=== PATIENT | male | born 1935 | race African-American/Black ===

== ENCOUNTER 2021-08-31 16:34 | Inpatient (IN) | payer OTHER ==
[~2021-08-31] VITALS: Ht 185.4 cm; Wt 73.9 kg
[2021-09-01 05:00] VITALS: BP 154/95
--- NOTE | 2021-09-01 07:15 | NUR ---
09-01-21 [facility] PT ARRIVED ON UNIT 0500 PT PLESANTLY CONFUSED BUT COOPERATIVE. PT AAOX1, B/P 154/65, P 65, R 18, T 97.0, 02 SAT 97% RA, RR EVEN AND NONLABORED ON RA. HCP Ten RDZ BILINGUAL SECRETARY CONTACTED. HCP Lauro PALACIOS NP CONTACTED AND ORDERS RECEIVED. PT HX HTN, HLD, GERD, MAJOR NEUROCOGNITIVE D/O WITH BEHAVIORS. RECEIVED CONSENTS FROM EVETTE RIVAS. PT WILL CONTINUE TO BE MONITOR PER [facility].
[2021-09-01 08:29] VITALS: BP 169/108
[2021-09-01 11:31] LABS: HEMATOCRIT 31.8 % (42.0-52.0); HEMOGLOBIN 10.5 gm/dL (14.0-18.0); MCH 32.1 pg (26.0-34.0); MCV 97.4 fL (80.0-100.0); RBC 3.27 mil/uL (4.50-6.00); RDW 14.9 % (10.5-14.5); WBC 3.7 thou/uL (4.0-11.0)
[2021-09-01 12:02] LABS: ANION GAP 9 mmol/L (7-16); BUN 19 mg/dL (7-18); CALCIUM 8.8 mg/dL (8.5-10.1); CHLORIDE 107 mmol/L (98-107); CHOLESTEROL 161 mg/dL (<200); CO2 26 mmol/L (21-32); CREATININE 1.1 mg/dL (0.7-1.3); GLUCOSE 124 mg/dL (74-106); HDL CHOLESTEROL 61 mg/dL (>40); LDL CHOLESTEROL 81 mg/dL (<100); MAGNESIUM 1.9 mg/dL (1.8-2.4); POTASSIUM 3.9 mmol/L (3.5-5.1); SODIUM 142 mmol/L (136-145); TC:HDL 2.6 Ratio (Not establshd); TRIGLYCERIDE 98 mg/dL (<150); VLDL 20 mg/dL (<40)
[2021-09-01 13:04] LABS: FOLIC ACID 22.5 ng/mL (8.6-58.9)
--- NOTE | 2021-09-01 17:33 | NUR ---
ERICKSON and Dr. Nelson were able to meet with the Pt's son/DPOA, Rodger, by phone. The Pt's was also on the phone call. Medications were discussed. Rodger was in agreement to medication recommendations from Dr. Nelson. Rodger stated they would like to place the Pt. The Pt has VA benefits and the family is completing the paperwork to acess the [facility] for LTC. Rodger stated the process could take 6-8 weeks. However the family has some money to private pay for placement. Rodger stated they have spoke with [facility] concerning placement. Rodger stated [facility] has accepted the Pt at this time. ERICKSON explained facilities sometimes agree prior to recieving clinical information, but change their minds once they get information. ERICKSON will reach out to [facility] Robison concerning the matter. There were no other questions or concerns. ERICKSON will continue to follow.
--- NOTE | 2021-09-01 18:05 | NUR ---
Patient care resummed, patient was located in the day room in a chair watchinf T.V. Patient has been pacing the halls throughout the day, anxious, and disoriented. Patient has been exit seeking and has been found in patient rooms throughout the day. Patient is confused, and noncompliant with clothing changes, and assessments. Patient has eaten all meals in the dayroom although when taking morning medications the patient chewed up his medications instead of swallowing them whole. MANAGEMENT ENGINEER crushed other medications throughout the day as indicated. A&O*1, lung sounds are clear and unlabored; VSS; abdomen is soft;nondistened with bowel sounds present*4. Skin assessment was not completed 100% per patient refusal. Labs completed and reviewed, gait visualized steady without ambulatory aid. Will continue to monitior patient for safety and behaviors.
--- NOTE | 2021-09-01 18:14 | NUR ---
Patient visualized an increase in aggitation as MEDICAL DELIVERY TECHNICIAN attempted to give 5mg Olanzapine; patient raised hands at MEDICAL DELIVERY TECHNICIAN and became hostile with MEDICAL DELIVERY TECHNICIAN. Patient also had urinated and was visually incontinent. Patient refused assistance to change clothes and was called for the behaviors and 20mg Geodon IM onetime was ordered at 1641 along side a Manual hold order;onetime. Security was notified and assisted nursing staff. Patient was held for approximately 2 minutes for injection and 2 minutes for clothing change. No injuries were sustained to patient or staff after hold completed. Patient is now resting in perry-chair in the dayroom.
[2021-09-01 19:39] VITALS: BP 134/80
--- NOTE | 2021-09-02 00:38 | NUR ---
At onset of material handler 1st shift pt was sitting in perry chair in day room, sleeping. Pt's speech was soft and garbled. It is very difficult to understand pt speaking. Pt did take his PO meds crushed in pudding. Pt was unable to engage in meaningful conversation. Pt at times was restless and would stand up from chair, but pt unable to verbalize what he needs. Staff assisted pt to the bathroom. Pt is low fall risk. Will continue to monitor.
[2021-09-02 04:07] LABS: GLYCOHEMOGLOBIN (HGB A1C) 5.2 % (4.8-5.6)
[2021-09-02 07:15] VITALS: BP 165/74
--- NOTE | 2021-09-02 09:13 | H ---
[facility] [place] [address] HISTORY AND PHYSICAL Name: DAVY LINTON Room #: 525A-A ADM IN M.R.#: [id number] Admission: 09/01/21 Attend Phys: Will Stacy DO Discharge: Date of : 37 Report #: [id number] THIS REPORT FOR: cc: Gilbert Zee MD,Gilbert Stacy,Will Shine DO ~ DATE OF SERVICE: 09/01/2021 INPATIENT PSYCHIATRIC EVALUATION ATTENDING PSYCHIATRIST: Will Stacy DO MEDICAL CONSULTANTS: Ai Alvarez and Dr. Baron. SOURCES OF INFORMATION: Interview with the patient who was a very poor historian. Telephone conversation with his stepson, very limited records from [facility] in [place], [place]. CHIEF COMPLAINT: Unspecified. HISTORY OF PRESENT ILLNESS: An 85-year-old black male who was transferred from [facility]. The records from [place] are sparse. The patient was restless, confused, wandering, exit seeking and agitated. He was treated at [place] for acute hypokalemia, prolonged QT interval and his behaviors. Additional background, I got from his family, he has a multiyear history of dementia, ericanaga says he is at stage 4.5 on a global deterioration scale. I think he is more advanced on that. When I asked the patient the day of the week and repeated that he responded $9. He does not have awareness of where he is, why he is here, that he is on a Geriatric Psychiatry Unit and things like this. The patient has been refusing medications, eating poorly. Family feels that he needs placement. EKG shows sinus rhythm, atrial premature complex, QT interval 493 milliseconds, DE interval 168 milliseconds, interval rate of 59. MEDICATIONS: The medications on his discharging from [place] are atorvastatin, calcitriol, metoprolol succinate, donepezil, amlodipine. LABORATORY DATA: White count is 3.7, H and H 10.5 and 31.8, platelet count 123. He was thrombocytopenic at [place]. Electrolytes: Sodium 142, potassium 3.9, chloride 107, bicarbonate 26, anion gap 9, BUN 19, creatinine 1.1, estimated GFR 77, glucose 124. A1c is pending. Lipids; HDL 61, LDL 81, cholesterol 161, magnesium 1.9, calcium 8.8. B12 level 494. Folate 22.5. TSH 0.989. Vitamin D is pending. His DPOA is his Rodger gipson, His just had neurosurgery at [facility] has a brain tumor [place] [address] HISTORY AND PHYSICAL Name: DAVY LINTON Room #: 525A-A ADM IN M.R.#: [id number] Admission: 09/01/21 Attend Phys: Will Stacy DO Discharge: Date of : 37 Report #: [id number] from the hospital, so he is not able to function in decision maker capacity, unfortunately there are no H and P and progress notes available from [place]. His white count was 5.5 on 08/27, H and H 7.8 and 34.0, platelet count 149, so I am hoping that it is dilutional anemia. Potassium was as low as 2.7. SARS-CoV-2 PCR was negative on 08/27. CT of the head done in [place] showed no acute intracranial abnormality. I did not get a good developmental educational work history. The family was heavily focused on placement matters and the patient is not able to accurately recall. PHYSICAL EXAMINATION: VITAL SIGNS: Today, temperature 36.1, pulse 67, respirations 19, BP 134/80, O2 sat 100%. GENERAL: Unkempt, tall black male, sitting in chair. He does walk independently. MENTAL STATUS EXAMINATION: Well-developed, ill-appearing black male appearing stated age. Attention impaired. Concentration impaired. He is hard of hearing. Speech normal in rate. Thought process: Linear, limited. Thought content: Poverty of thought. Psychomotor agitation intermittently. Mood and affect congruent, constricted. Memory not formally tested, known to be impaired. Insight and judgment limited. Fund of knowledge are grossly diminished. FORMULATION: An 85-year-old black male transferred from [facility] due to continued agitation, self-care failure. PLAN: The patient is admitted via DPOA to [facility] at [facility]. Hospitalist consult evaluate and stabilize. Regarding his medications, I think he is too advanced to benefit from cognitive enhancers and I will discontinue Aricept. He did get started Geodon this evening for assaultiveness, aggressiveness. We will go ahead and start him on Depakote and he does have some p.r.n. olanzapine ordered. I will probably start him on olanzapine 5 mg b.i.d. Discussed risks, benefits, alternatives to antipsychotics including risk of stroke and with family, they are agreeable to proceed. ANEUDYOS 10-14 days Time spent on this case is 45 minutes, greater than 50% of the time spent in review of records and coordination of care. [facility] [address] [facility] [place] [address] HISTORY AND PHYSICAL Name: DAVY LINTON Room #: 525A-A ADM IN M.R.#: [id number] Admission: 09/01/21 Attend Phys: Will Stacy DO Discharge: Date of : 37 Report #: [id number] STRENGTHS: He is insured, has supportive family. WEAKNESSES: Advanced dementia, multiple morbidities. <ELECTRONICALLY SIGNED> By: Will Stacy DO 09/02/21912 1752 193 Will Stacy DO /nt
[2021-09-02 10:27] VITALS: BP 165/74
[2021-09-02 14:23] LABS: HEMATOCRIT 30.7 % (42.0-52.0); HEMOGLOBIN 10.2 gm/dL (14.0-18.0); MCH 32.2 pg (26.0-34.0); MCHC 33.4 g/dL (28.0-37.0); MCV 96.3 fL (80.0-100.0); RBC 3.18 mil/uL (4.50-6.00); WBC 5.9 thou/uL (4.0-11.0)
--- NOTE | 2021-09-02 14:45 | NUR ---
Pt found on floor-ACUTE CARE PHYSICAL THERAPIST activated-see flowsheet
[2021-09-02 14:47] VITALS: BP 94/60
--- NOTE | 2021-09-02 15:04 | NUR ---
Several calls made to Rodger, son, with no answer. Voicemail was full. Call placed to , who is also DPOA. , Sánchez, reported that she is now home and recovering from surgery. Informed of fall, CT scan, labs collected and IV fluids being administered. grateful for the call.
[2021-09-02 15:36] LABS: CALCIUM 8.9 mg/dL (8.5-10.1); CREATININE 1.5 mg/dL (0.7-1.3); POTASSIUM 3.3 mmol/L (3.5-5.1)
[2021-09-02 15:45] LABS: MAGNESIUM 2.1 mg/dL (1.8-2.4)
--- NOTE | 2021-09-02 16:38 | NUR ---
Fall event: Pt had an unwitnessed fall and was noted laying on the floor at the foot of the bed in -B by Dr. Stacy. This RN quickly came to the scene of the fall and pt was noting laying on the floor holding his head. Dr. Stacy remained with pt while this RN grabbed a vitals machine and asked for a TRANSITION PROGRAM MANAGER to come help assist with vitals and getting pt off the floor. Pt had full ROM at this time and was able to follow commands and was assisted x2 by this RN and TRANSITION PROGRAM MANAGER to sit on the bed, from the floor. Pt was at his baseline oriented of alert and oriented to self only. Pt did voice c/o pain to his head but due to pt's cognitive state unable to assess pain further. Pt's BP electronically was 62/33, therefore this RN went to obtain a manual BP cuff. When this RN returned to the room to obtain pt's BP manually, he was laying on the bed horizontally, with his head off of the bed and unable to follow commands nor sit up on his own. Pt was also unable to follow commands such as squeeze this RN's hands, or smile as pt was slurring, also not his baseline. Due to pt's significant change in status rapid response was called and BP manually was obtained at 94/60. Dr. Baron responded to rapid response and was notified of the incidents that occurred prior to change in status, including pt's fall at 1338. This RN called pt's son/DPEVETTE Soares but no answer and unable to leave a VM due to his VM being full. Doris RN supervisor core drilling was able to get ahold of pt's , Codey, who was notified of the above events.
[2021-09-02 18:44] VITALS: BP 120/95
--- NOTE | 2021-09-02 18:55 | NUR ---
Pt was alert and oriented to self only throughout the shift. He was restless and difficult to redirect. Pt was initially resistant to taking his oral medications. He was given his pills whole but he took one pill out, took it, and was not willing to take the rest of his pills. Medications were then crushed and reattempted to give pt in yogurt but pt was refusing the yogurt. Multiple attempts were made to give pt the bites of yogurt with crushed pills and after multiple attempts pt was compliant around 1030. Pt was withdrawn to his room, periodically coming out and wandering the unit. Pt was noted wandering into another pt's room and this was communicated to the PRINT COLOR MATCHER's. Shortly after pt was noted in another pt's room, on the floor holding his head and appeared to have fallen; see previous note regarding fall. Pt's fluids were stopped at 1817 (150mL short of 1000 mL of NS) as pt became restless and difficult to redirect. Dr. Stacy was notified and order received to stop fluids and remove IV. Order also recieved for one time dose of zyprexa 5mg IM with an order for a manual hold to administer IM. Pt had a 20 guage IV placed during the rapid response to his R wrist that shortly after was no longer working. A 22 guage was then placed in pt's left forearm and he was compliant with both IV placements. Pt had a good appetite and ate 100% of dinner and appears more calm at this time. Pt's thought process is disorganized and due to his cognitive state is difficult to assess and have a conversation with. Pt is currently sitting in a perry-chair in the dayroom with a chair alarm as pt was given a walker but due to his cognitive state will not use. Will continue to monitor.
--- NOTE | 2021-09-03 05:17 | NUR ---
09-02-21 CARE TRANSFERRED 0 OBSERVED PT SITTING IN RECLINER IN DAY ROOM. LATER PT AAOX1, VSS, RR EVEN AND NONLABORED ON RA. LUNGS CLEAR, HT RR, ABD SOFT/FLAT/ACTIVE. OBSERVED NO S/S OF PAIN AND NO SI/HI BEHAVIORS. OBSERVED PT PICKING THINGS IN AIR AND ON FLOOR, PT COMMUNICATION IS SPONTANOUS WORD SALAD. PT HAS BEEN COOPERATIVE DURING NURSING ASSESSMENT AND CARES. DURING MEDICATION ADMIN PT CHEWED MEDICATION HCP NOTIFIED. PT RESTLESS AND FREQUENCY OF VOIDING. PT RESISTIVE TO RESTING IN ROOM. LATER NOTED PT RESTING IN RECLINER WITH EYES CLOSED. PT WILL CONTINUE TO BE MONITOR PER [facility] PROT[facility]OL.
--- NOTE | 2021-09-03 07:41 | EKG ---
[address] [address] ELECTROCARDIOGRAM REPORT Name: DAVY LINTON Room #: [facility] ADM IN M.R.#: [id number] Admission: 09/01/21 Attend Phys: Will Stacy DO Discharge: Date of : 37 Report #: [id number] [facility] Test Date: 2021-09-02 Test Time: 14:04:38 Pat Name: DAVY LINTON Department: Room: [facility] Gender: M Vehicle And Equipment Cleaner: ESTHER : 1935 Requested By: Will Stacy Order Number: [id number] MD: Kevin Arias Measurements Intervals [place] Rate: 63 P: 63 ID: 61 QRS: 56 QRSD: 90 T: 85 QT: 502 QTc: 514 Interpretive Statements Sinus rhythm Atrial premature complexes Short ID interval Prolonged QT interval Baseline wander in lead(s) V4 Compared to ECG 08/31/2021 23:23:28 Short ID interval now present Electronically Signed On 09-03-2021 7:40:38 PARTS ROOM ASSOCIATE by Kevin Arias [email or web address] <ELECTRONICALLY SIGNED> By: Kevin Arias MD, [facility] 09/03/21 0740 1404 1404 Kevin Arias MD, [facility] /EPI
[2021-09-03 12:14] VITALS: BP 135/89
[2021-09-03 14:54] VITALS: BP 161/113
--- NOTE | 2021-09-03 17:03 | NUR ---
ERICKSON recieved a message from the nurse that the Pt's son Oj, , was upset concerning not knowing the status of his father. ERICKSON did call Oj back concerning the matter. Oj was very apologetic concerning the conversation he had with nurse and being upset. Oj stated he did not understand but has since spoken with other family members to better understand concerns with his father. SW provided emotional support for Oj. ERICKSON advised that we would need the consent of the DPOA to give Oj information. SW encouraged Oj to speak with his the Pt about being included on conversations with the hospital about the Pt. Oj had no other questions or concerns.
[2021-09-03 19:15] VITALS: BP 155/128
[2021-09-03 20:04] VITALS: BP 141/78
--- NOTE | 2021-09-04 03:58 | NUR ---
Assumed pt's care beginning of this HS shift. Pt unable to answer assessment questions. Rambling speech. Pt was brought of his room to the dayroom beginning of shift as staffs reported pt attempting to get out of bed. Pt took meds without issues. Pt slept off and on in the dayroom. No agitation or aggression noted. Cooperative with lab draw this am. Chair alarm in place. Nursing to continue to monitor.
[2021-09-04 05:10] LABS: CALCIUM 9.2 mg/dL (8.5-10.1); MAGNESIUM 2.2 mg/dL (1.8-2.4); POTASSIUM 3.6 mmol/L (3.5-5.1)
[2021-09-04 05:12] LABS: HEMATOCRIT 34.8 % (42.0-52.0); HEMOGLOBIN 11.4 gm/dL (14.0-18.0); MCH 31.8 pg (26.0-34.0); MCHC 32.8 g/dL (28.0-37.0); RBC 3.59 mil/uL (4.50-6.00); RDW 14.9 % (10.5-14.5); WBC 5.5 thou/uL (4.0-11.0)
[2021-09-04 09:56] VITALS: BP 120/80
--- NOTE | 2021-09-04 13:57 | NUR ---
iINCREASED RESTLESSNESS AFTER LUNCH-ATTEMPTING TO GET UP ON OWN AND BECOMES COMBATIVE WITH ATTEMPTS TO REDIRECT. MANAGER SOCIAL ON UNIT AND ORDERS RECEIVED FOR ZYPREXA IM-SECURITY CONTACTED BUT PT WAS COMPLIENT WITH INJECTION AND DID NOT REQUIRE HOLD
--- NOTE | 2021-09-04 16:15 | NUR ---
addendum to above-PT REFUSED OFFERS OF PO PRN ZYPREXA PRIOR TO INJECTION
[2021-09-04 19:22] VITALS: BP 139/54
--- NOTE | 2021-09-05 03:08 | NUR ---
Assumed pt's care this pm shift. Pt oriented to self. Confused. Disorganized thoughts. Pt cooeprative with meds. Did get up by himself to use the bathroom. Pt brought out to dayroom as he kept wanting to get up. Pt slept off and on in the dayroom. Pt becoming increasingly restless. Attempting to get out of gerichair. Redirecting not working. Pt given 5mg IM zyprexa. Did not attempt to be aggressive towards this RN during med administering. Nursing to continue to monitor.
[2021-09-05 10:26] VITALS: BP 137/65
[2021-09-05 19:50] VITALS: BP 192/72
[2021-09-05 20:11] VITALS: BP 192/72
--- NOTE | 2021-09-05 21:34 | NUR ---
Assumed care at 1300. Client was in confused and cooperative mood. Client was oriented to self only during this time. Client denied any depression and anxiety. Client denied any visual or audio hallucinations, though client would stare off into space and talk to wall when assessed. Client did not exhibit any suicidal or homicidal intent at this time. Per Dr. Baron, no geodon to be given to client on today's shift due to PVC. Client still exhibits hypokalemia and other low labs. UA collected and sent to lab to check for updates or improvements in labs in addition to checking for UTIs. Client voided in hat and void was sent off to lab at 1700. No exit seeking or agitation noted on this shift. Client has been in chair resting and watching tv. Currently in bed with no issues. No further concerns.
[2021-09-05 21:38] LABS: URINE BILIRUBIN NEGATIVE (Negative); URINE BLOOD NEGATIVE (Negative); URINE CLARITY CLEAR; URINE COLOR YELLOW; URINE GLUCOSE-RANDOM* NEGATIVE (Negative); URINE KETONES 1+ (Negative); URINE LEUKOCYTES-REFLEX NEGATIVE (Negative); URINE NITRITE-REFLEX NEGATIVE (Negative); URINE PROTEIN (DIPSTICK) NEGATIVE (Negative); URINE UROBILINOGEN 0.2 E.U./dl (0.2-1.0)
--- NOTE | 2021-09-06 02:30 | NUR ---
PATIENT CARE WAS RESUMED AT 1900. HE WAS IN THE DININIG AREA STTING N THE TABLE. HE IS ALERT AND ABLLE TO COMMUNICATE AND HE TOOK HIS MEDS WHOLE. LUNGS ARE CLEAR BS ACTIVE X4 QUAD. HE DENIES SI/AVH/HI. HE AMBULATES WITH WHEELCHAIR AND HE IS A MAX ASSIST WITH CARE. ASSISTED WITH MARVEL-CARE AND TRANSFERS. BED IS LW, LOCKED AND ALARMED. X67XIOPAGA CHECH IS ONGOING. YELLOW TO AND SOCKS ARE ON. CONTINUE CARE AND MONITOR
[2021-09-06 09:12] VITALS: BP 123/67
--- NOTE | 2021-09-06 10:27 | NUR ---
HAS BEEN NAPPING IN GERICHAIR INTERMITENTLY THIS AM-ROUSES TO VERBAL QUEING AND DID EAT BREAKFAST WHEN FEED-SPIT OUT WHOLE PILLS WHEN GIVEN-MEDS CRUSHED AND PUT IN ICE CREAM AND DID TAKE APPROX 4 BITES BEFORE REFUSING TO OPEN MOUTH FOR MORE, GAIT VERY UNSTEADY AND CONTINUES TO ATTEMPT TO GET UP OUT OF CHAIR WITHOUT ASSIST-REISITVE WITH ATTEMPTS TO REORIENT/REASSURE. SPEECH MUMBLED AND CONVERSATION RAMBLING ,FRAGMENTED AND MOSTLY INCOHERENT. ORIENTED TO NAME ONLY
[2021-09-06 12:25] LABS: CALCIUM 8.9 mg/dL (8.5-10.1); CREATININE 1.1 mg/dL (0.7-1.3); POTASSIUM 3.5 mmol/L (3.5-5.1)
[2021-09-06 20:16] VITALS: BP 154/60
--- NOTE | 2021-09-06 22:54 | NUR ---
At onset of sales promotion coordinator pt was sleeping in perry chair in day room. Pt was arousable to his name being called and chest being rubbed. Pt's speech was soft and difficult to understand. Pt did not open his mouth to take pills crushed in pudding. Pt did not recieve HS PO medications. Pt was compliant with being transferred to bed. Pt did not engage in meaningful conversation. Unable to assess SI, HI and AVH. Affect was constricted. Pt appeared to be in a position of comfort. Fall precautions in place. Will continue to monitor.
[2021-09-07 08:45] VITALS: BP 141/77
--- NOTE | 2021-09-07 10:47 | NUR ---
Restless this AM. Resistant to cares and refused assessment. Also resistant to direction, walking backwards with unsteady gait when attempted to give assistance. 5 mg Olanzapine given PO per PRN order with good results. Oriented to name only, confused speech. Denies SI/HI. Breath sounds clear. Reg HR auscultated. Color pink with brisk capillary refill and palpable peripheral pulses. Lips dry. Brief dry, attempted to toilet this AM, unable to void. Active bowel sounds over soft, rounded abdomen. Will give milk of magnesia today d/t no BM in several days. Ambulates with slightly unsteady gait, encouraging to use walker. Pushing fluids this am, currently sleeping in recliner without s/o distress.
[2021-09-07 16:05] VITALS: BP 146/62
--- NOTE | 2021-09-07 16:48 | NUR ---
ERICKSON was able to speak to Sakina at [facility] concerning admissions. Sakina stated the family has contacted them about the Pt. Sakina stated they would still need the clinical information to make a determination. ERICKSON informed the family was hoping to use VA benefits in the future. Sakina confirmed they were not a VA contracted facility but was still able to work with the family concerning placement. There were no other questions or concerns. ERICKSON will fax over a referral.
[2021-09-07 17:10] VITALS: BP 139/66
[2021-09-07 20:09] VITALS: BP 96/57
[2021-09-07 20:11] VITALS: BP 123/71
--- NOTE | 2021-09-07 22:37 | NUR ---
At onset of night guard pt was sitting in day room awake in perry chair. This shift pt was alert and only oriented to self. While awake pt sat in chair and would fold a blanket or would occassionally talk to peers that approached him. Pt's affect was constricted but did smile when talking with engineering writer. Pt's speech continues to be soft and difficult to understand. Pt made poor eye contact. Pt did take his medications mixed in yogurt. Fall precautions are in place. Pt forgets limitations at times and tries to stand out of chair. Will continue to monitor.
[2021-09-08 12:17] LABS: CREATININE 1.2 mg/dL (0.7-1.3); POTASSIUM 3.3 mmol/L (3.5-5.1)
--- NOTE | 2021-09-08 13:59 | NUR ---
RT Progress Note- At this time, Theo is minimally active in the milieu and recreational therapy groups. He often naps throughout the day. When awake he gives limited verbal response to social stimulation, but will nod his head or smile. EXPOSURE MACHINE OPERATOR will continue to engage patient throughout his admission.
[2021-09-08 14:04] VITALS: BP 116/61
--- NOTE | 2021-09-08 17:44 | NUR ---
Assumed pt care this morning from overnight shift. Client was in activity area sitting during this time, and presented confused and slightly agitated. Client was oriented to self only during this time, and was redirected to sit down at table and use walker when ambulating from place to place. Client was repeatedly redirected during this time and asked to stay by staff when ambulating. Client lung sounds were clear, but diminished. Bowel sounds were present. HR slightly elevated at 100 when reassessed. Client was unable to answer questions about suicidal or homicidal thoughts, au/vi, or depression and anxiety at this time. Client was given medications crushed in pudding during this time. 1400 medication was held as client was sleeping in chair with no concerns. Client is currently in activity area resting in perry chair. No further concerns at this time.
[2021-09-08 19:11] VITALS: BP 116/61
[2021-09-08 19:31] VITALS: BP 146/47
--- NOTE | 2021-09-09 05:34 | NUR ---
At onset of night custodian pt was sitting in day room in chair awake. This shift pt was alert and oriented only to himself. Pt made poor eye contact and at times does not open his eyes when speaking. Speech was soft and difficult to understand. Pt was transferrd to his bed, but was found at to sitting up in bed with his legs hanging over the side rail. Pt was toileted, voided, and then was placed in perry chair and moved to day room pushed up to a table. Pt was restless sitting in chair. Pt would push himself up in the chair and push the table up. Pt was agitated when staff would attempt to reposition pt. Staff stated to patient that he needed to be careful or he may "fall and crack his head open." Pt resonded angrily "just do it already." Pt recieved IM 5mg Zyprexa at 0012. No manual hold required. Pt continued to push himself up in chair and tilt chair back. RN called on-call Dr. Penny and received orders for 10mg Geodon IM; administered at 0345. Pt did appear to calm down after this medication and continued to sit in chair. Pt was walked to a from bathroom twice during the evening.
[2021-09-09 07:07] VITALS: BP 131/63
[2021-09-09 09:43] VITALS: BP 131/63
--- NOTE | 2021-09-09 18:40 | NUR ---
Resummed pt care this morning from overnight shift. Client presented as sleepy and sedated during this time. Staff attempted to give client his morning medication, but only medication that client would take was his potassium which was in oral liquid solution that he drank. Client had difficulties drinking liquid, so thickener was used to help with liquid. Provider notified of this, and speech consult was ordered. Client was put on new nectar thick diet at this time along with mechanically soft/altered food. Client did not exhibit any signs of depression or anxiety at this time, as he was sleeping. Likewise, no audio or visual hallucinations were noted as client was sleeping. Initial dose of amox. clav. was ordered, but switched to ceftriaxone IM due to NPO status during lunch and swallowing difficulties. IM ceftriaxone mixed with lidocaine as ordered given. Client tolerated this well without issues. 1400 zyprexa held again due to sedation. At 1800, client started to stir in seat, and was reoriented several times to finish dinner and not get up without walker. Client currently in gerichair at this time. No further concerns.
[2021-09-09 19:00] VITALS: BP 147/63
[2021-09-09 19:50] VITALS: BP 147/63
--- NOTE | 2021-09-10 03:43 | NUR ---
PATIENT CARE WAS RESUMED AT 1900. HE IS AWAKE AND SITTING ON A GERICHAIR IN THE DININIG AREA.ABLE TO COMMUICATE NEEDS.NEED SOME ASSISTANCE WITH TRANSFER HE AMBULATES AND TOOK HIS MEDS WITH APPPLE SAUCE AND ALSO ATE SOME SNACKS HE IS CONTINIET OF BOWEL AND BLADDER. HE DENIES AND DISCOMFORT AND PAINS/SI/AVH/HI. HE IS COOPERATIVE WITH CARE AND CONTINUES TO TRY GETTING OUT OF HIS GERICAHIR. YELLOW TOP AND SOCKS ARE ON WITH Q12 MINUTES CHECK
[2021-09-10 16:08] VITALS: BP 127/50
--- NOTE | 2021-09-10 18:26 | NUR ---
Patient care resummed; Patient located in the dayroom resting comfortably in a Beth-Chair. Patient was calm, and cooperative throughout the day, until ruffly 1800 were patient became increasingly irritable. Patient has been Alert at short intervals throughout the day. Patient noted asleep ruffly 75% of the day; Lung sounds are diminished, with sternal retraction noted; VSS on Room Air; Aspiration precations are in place; Fall precautions are in place. Patient unable to deny SI/HI/AVH, depression, and anxiety; Patient cant state Yes/No to pain; Patient assisted to and from restroom *3 times today when the patient would awaken. Patient did eat 75% breakfast, 0% lunch, and 50% dinner. Patient appears frail, thin, confused, and noted disoriented*4. Will continue to monitior patient for safety and behaviors.
[2021-09-10 22:28] VITALS: BP 127/50; BP 145/86
--- NOTE | 2021-09-11 04:49 | NUR ---
Theo was asleep in bed at the start of the shift but in passing this RN noted pt sitting on the side of his bed at 1999. Pt's bed alarm was on but was not alerting that pt was trying to get out of bed. This RN with assistance cleaned pt up and transferred him to a perry-chair and brought him to the dayroom where staff could keep a closer eye. Pt was alert but difficult to tell if pt is oriented to self as at times he will respond to his name, but other times he will not. Pt is also disoriented to place, time, and situation. Pt's speech is garbled and his thought process is disorganized. He appeared to be experiencing VH as he would often grasp at things that are not there. He took his medications crushed in yogurt and ate a whole yogurt with medication pass. During the middle of the night pt became very restless and anxious, and yelled out at times; zyprexa PO PRN given per NOV with effectiveness. Pt had a couple episodes of incontinence this shift and has difficulty following directions, but was compliant with cares. Pt appeared comfortable throughout the night, will continue to monitor.
[2021-09-11 09:28] VITALS: BP 140/68
[2021-09-11 11:42] VITALS: BP 167/54
[2021-09-11 11:43] VITALS: BP 138/60
[2021-09-11 11:58] LABS: ABSOLUTE NEUTROPHILS 2.6 thou/uL (1.4-8.2); BASOPHILS 0.3 % (0.0-2.0); EOSINOPHILS 2.8 % (0.0-3.0); HEMATOCRIT 32.7 % (42.0-52.0); HEMOGLOBIN 10.8 gm/dL (14.0-18.0); LYMPHOCYTES 28.5 % (24.0-44.0); MCH 32.1 pg (26.0-34.0); MCHC 33.1 g/dL (28.0-37.0); MCV 96.9 fL (80.0-100.0); MONOCYTES 13.4 % (1.0-8.0); PLATELET COUNT 123 thou/uL (150-400); RBC 3.38 mil/uL (4.50-6.00); RDW 14.8 % (10.5-14.5); WBC 4.6 thou/uL (4.0-11.0)
[2021-09-11 13:31] LABS: ALBUMIN 2.7 g/dL (3.4-5.0); POTASSIUM 3.6 mmol/L (3.5-5.1); TOTAL BILIRUBIN 0.5 mg/dL (0.2-1.0); TOTAL PROTEIN 6.7 g/dL (6.4-8.2)
[2021-09-11 16:52] VITALS: BP 97/59
[2021-09-11 16:54] VITALS: BP 113/67
--- NOTE | 2021-09-11 19:54 | NUR ---
Patient care resummed; Patient located in dayroom in Beth-Chair resting comfortably; Patient noted to be drowsy, lethargic, sleeping but arousble; Patient did not eat breakfast, 90% lunch with 400cc liquid, 50% dinner with 10cc liquids; Patient mucous membranes dry; patient not able to arouse to drink liquids in morning, and part of afternoon, so Oral swabs have been used Q1hour for moisture; V/S have been irregular throughout the day, and charted; Nonverbal pain scale used with grimicing noted during assessment; Medications attempted although unable to arouse enough to injest medications; Lung sounds clear, diminsihed bilaterally, with sternal retractions aparent at times; HYDROELECTRIC PLANT OPERATOR and Staff visualized patient gasping for air, with epiosdes of apnea; V/S- 167/54 HR:158 R:13 O2:92% Second set of V/S- 138/60 HR:60 (Bounding/Radial) R:13 O2:92% HYDROELECTRIC PLANT OPERATOR informed SYSTEM ARCHIVE ANALYST Lidia and of pt. status; Labs and Chest XRAY ordered and reviewed; patient on aspiration precautions, fall precautions; Incontinent *1 today of bladder; Will continue to monitior for safety and behaviors.
[2021-09-11 20:04] VITALS: BP 131/71
--- NOTE | 2021-09-12 06:37 | NUR ---
Assumed care of pt at 1900. Pt calm et cooperative this shift. Took medications whole without difficulty. Ambulates with assistance of perry-chair. VSWNL. Health assessment with no abnormalities noted at present time. Unable to assess SI/HI but pt does not demonstrate any symptoms of acute emotional distress at present time. Currently resting in perry-chair in dayroom with eyes open. Will continue to monitor per unit protocol.
[2021-09-12 07:32] VITALS: BP 131/71
[2021-09-12 09:54] VITALS: BP 120/65
--- NOTE | 2021-09-12 10:39 | NUR ---
Theo was alert and oriented to self only this morning. He presented as restless but calm and cooperative. His eyes appeared more open this morning and he appeared more responsive. When asked if he was hungry he stated "yes" and wished to eat breakfast and required assistance with feeding. He was medication compliant, taking pills crushed in oatmeal, without difficulty. Due to his cognitive state and disorganized thought process pt was difficult to assess but no SI/HI bx have been noted. Pt has been observed grasping at things that are not there, possibly experiencing VH. Pt has been in a perry-chair in the dayroom since the start of the shift. Will continue to monitor.
[2021-09-12 19:30] VITALS: BP 120/70
--- NOTE | 2021-09-13 03:20 | NUR ---
PT SAT UP IN BRIDGET CHAIR AT A TABLE. PATIENT BECAME RESTLESS THE EVENING WENT ON BUT WAS EASILY REDIRECTED. PATIENT TOOK HIS HS MEDS WITH HONEY THICK WATER AND CRUSHED IN APPLESAUCE. HE TOLERATED WELL. PATIENT DENIES PAIN. HE IS A/0X1. ASSISTED PATIENT TO THE BATHROOM 3 TIMES. HE DOES AMBULATE WITH ASSISTANCE. PATIENT HAS BEEN CALM AND COMPLIANT, JUST RESTLESS AT TIMES. PATIENT CONFUSED SINCE HIS BED WAS CHANGED TO A INSTEAD OF B AND KEEPS WANTING TO GET INTO B BED. PATIENT ASSISTED TO BED. HE DID HAVE BM. BED IN LOW POSITION AND BED ALARM IS ON. ROUTINE ROUNDS TO ASSESS SAFETY AND STATUS OF PATIENT. NO SIGNS OF SI/HI/AVH NOTED.
[2021-09-13 12:29] VITALS: BP 148/65
[2021-09-13 13:55] VITALS: BP 148/65
--- NOTE | 2021-09-13 17:48 | NUR ---
Assumed client care this am from overnight shift. Client was in bed resting initially, then in gerichair in activity area after being woken up for breakfast by staff. Client has been calm and cooperative during this shift and presents oriented to self only. Client could not answer questions in regard to depression/anxiety, but no restlessness noted. Client was seen talking to self and pointing at air, especially when his family tried to talk to him on the phone earlier this morning. Client was redirected to conversation several times, but would ramble unintelligibly at this time. Client's family informed of client's current status by this nurse when DPOA called. Message passed along to social work that family would like to speak to social work in regard to placement. Only noted med change today was increase of zyprexa to 7.5 hs. Client lung sounds were diminished with slight wheeze- client recently completed course of antibiotics due to aspiration pneumonia. Client bowel sounds were present. Last BM 09/12. Client on honey thick liquids and pureed diet due to previous trouble with swallowing. Client has drank several cups of 4oz juices on this shift given by nursing and REVENUE CYCLE SPECIALIST staff in order to keep hydrated. No current concerns.
[2021-09-13 19:50] VITALS: BP 128/67
[2021-09-13 20:24] VITALS: BP 128/67
--- NOTE | 2021-09-14 01:40 | NUR ---
PATIENT CARE WAS RESUMED AT 1900.HE WAS SITTING ON BRIDGET-CHAIR IN THE DININIG AREA. AWAKE AND CONFUSED. MAX ASSIST WITH CARE. HE IS CONTINIT OF BOWEL AND BLADDER. NEEDING ASSISTANCE WITH MARVEL-CARE. HE TOOK HIS MEDS CUSHED WITH APPLE SAUCE.STAFF FEED HIM HIS SNACKS AND HE ATE ALL AND DRANK HIS FLIUDS.YELLOW SOCKS AND TOP ON, [id number] CHECK IS ONGOING. HE DENIES SI/AVH/HI. BED IS LOW, LOCKED AND ALARMED. HE REFUSES CARE SOMETIMES.
[2021-09-14 11:03] VITALS: BP 95/61
[2021-09-14 11:09] VITALS: BP 112/68
--- NOTE | 2021-09-14 11:49 | NUR ---
RT Progress Note- No change from previous review. Continues to sleep much of the day. When awake, gives little attention and effort towards participation. Will continue to engage when awake.
--- NOTE | 2021-09-14 16:49 | NUR ---
ERICKSON emailed a referral to Vianca Ruff at [facility]. Pt was declined due to the Pt stage of dementia and the facility is unable to meet the Pt's needs. ERICKSON did call the Pt's DPOA, Rodger, concerning the matter. ERICKSON also discussed sending more referrals in the [place] area. Rodger was in agreement with this idea. Rodger informed they have to wait 90 day until the Pt's VA benefits for LTC are active, however family is able to pay privately until that time. ERICKSON faxed referrals to the following: [facility] ERICKSON will continue to follow
--- NOTE | 2021-09-14 18:42 | NUR ---
Patient carer resummed; patient located in the dayroom resting in a gerichair; N/O of distress noted; Lung sounds clear, although diminishedl unlabored; Abdomen soft, nondistended, with bowel sounds present*4; Medication/Meal compliant; Cream was appllied to patient bottom due to increase in assistance and increase in sitting in Gerichair; Patient on thicked liquids with pureed meals; Non-productive cough noted throughout the day; Patient was Hypotensive this morning @95/61; BP was retaken mannually @112/68; Patient has been asleep most of the day, waking for meals and assistance to bathroom; unable to SI/HI- No S/O behavior presented; AVH visualized; No acute distress noted; Fall precautions in place, Aspiration precautions in place; will continue to monitior for safety and behvaiors
[2021-09-14 19:35] VITALS: BP 134/73
[2021-09-14 20:21] VITALS: BP 134/73
--- NOTE | 2021-09-15 03:33 | NUR ---
PATIENT CARE WAS RESUMED AT 1900. HE WAS SITTING IN THE DININING AREA ON A BRIDGET-CHAIR. HE IS AWAKE AND ABLE TO VERBALIZE SOME NEEDS. LUNGS ARE CLEAR BS ACTIVE X4 QUADS. HE IS A MAX ASSIT WITH CARE AND TRANSFER. HE IS CONTINIINT OF BOWEL AND BLADDER. HE DENIES PAINS/SI/AVH/HI. HE IS ON THICKNED LIQUID AND HE IS ASSISTED WITH TOILETING AND MARVEL-CARE. FALL PRECAUTION IN PLACE YELLOW TOP AND SOCKS ARE ON.CHAIR IS LOCKED AND ALARMED.
[2021-09-15 11:07] VITALS: BP 113/49
--- NOTE | 2021-09-15 17:29 | NUR ---
ERICKSON and Dr. Nelson attempted to call the Pt's DPOA, Rodger. A VM was left requesting a call back. As of this note Rodger has not returned the call.
--- NOTE | 2021-09-15 17:50 | NUR ---
Patient care resummed, patient located in Day-Room resting comfortably; Patient presents calm, cooperative, as well as pretty drowsy; Patient A&O*1 (self) at times, while throughout the day patient will become disorientated*4; Patient denies SI/HI/AVH, Pain, Anxiety, Depression at this time; Patient ambulates to and from restroom with a *1-moderate assist; Patient slept most of the day, awaking for meals and medication administrations; Lungs sounds clear bilaterally, diminished; Abdomen soft, nondistended with BS*4Q; V/S present Hypotensive this morning which was later retaken; Patient on active fall precautions as well as aspiration precautions; Will continue to monitior for safety and behaviors;
[2021-09-15 19:26] VITALS: BP 119/73
[2021-09-15 19:45] VITALS: BP 119/73
--- NOTE | 2021-09-16 04:10 | NUR ---
PATIENT CARE WAS RESUMED AT 1900. HE IS AWAKE AND ABLE TO VERBALIZE SOME NEEDS. HE AMBULATES WITH ASSISTANCE AND HE TOOK HIS MEDS CRUSHED WITH APPLESAUCE.HE DENIES PAINS. AVH/SI/SI.LUNGS ARE CLEAR BS ATIVE X4 QUAD.HE IS SLEEPING IN THE DININING AREAS WITH CHAIR ALARM ON AND BRIDGET-[facility] IS LOCKED. HE IS CONTININET OF BOWEL AND BLADDER. HE NEEDS SOME CUES TO ENGAGE IN SOME ADLS. HE IS CONFUSED AND FLUIDS ARE OFFERED DURING THIS SHIFT AND HE TOLORATES IT. BED IS LOW, LOCKED AND ALARMED. YELLOW TOP AND SOCK ARE ONCONTINUE CARE
--- NOTE | 2021-09-16 10:16 | NUR ---
Referrals sent to the following Pending [facility] To [facility])
[2021-09-16 10:56] VITALS: BP 103/60; BP 117/78
--- NOTE | 2021-09-16 17:44 | NUR ---
Patient care resummed, Patient located in dayroom sitting in a Beth-Chair; Patient has been calm, cooperative and pleasent with staff throughtout the day; Patient noted to be sleeping most of the day, awakening for meals/medications and restroom; patient ambulated to and from restroom with *1 assist; Patient disoriented*4, although when answering questions best answers to Yes/No questions; Lung sounds clear,diminished, unlabored; Abdomen soft, nondistended, with active BS*4; Pt, [facility].Soft instead of Pureed, patient tolerated well; Fall precautions in place, will continue to monitior for safey and behaviors;
[2021-09-16 19:32] VITALS: BP 134/72
[2021-09-16 19:50] VITALS: BP 134/72
--- NOTE | 2021-09-17 02:52 | NUR ---
PATIENT CARE WAS RESUMED AT 1900. HE IS IN THE DAY AREA ON A BRIDGET-CHAIR. HE WAS VERY SLEEPY AND DIFFICULT TO BE AWAKEN. HE IS INCONTIINIET OF BOWEL AND BLADDER. MEDS WERE GIVEN WITH PUDDING AND CRUSHED. LUNGS ARE CLEAR BS ACTIVE X4 QUADS.HE NEED ASSISTANCE WITH FEEDING AND FLUID WERE OFFEREDAND HE DRANK THEM ALL. ALARM IS ACTIVATED ON THE CHAIR AND IT IS LOCKED. HE DENIES SI/AVH/HI. HE IS SLEEPING ON THE RECLINER. Q12 MINUTES CHECKS ARE ONGOING. HE IS CALM AND COOPERATIVE WITH CARE
[2021-09-17 09:16] VITALS: BP 129/72
[2021-09-17 09:53] VITALS: BP 129/72
--- NOTE | 2021-09-17 17:43 | NUR ---
Resummed pt care this morning from overnight shift. Client was sitting in gerichair during this time, and presented confused but cooperative. Client was disoriented 4x, and presented as tired during this time. Client was unable to verbalize depression and anxiety when asked. Client noted to talk to air and mumble to himself from internal stimuli. Grimace was noted in expression, but client did not verbalize pain. Continued grimace, so client was given prn tylenol to help provide pain relief. Client grimace noted to be reduced after this. Client lung sounds were diminished but audible at this time. Heart rate was audible and noted to be bradycardic, which is baseline. Rechecked HR and pulse ox at this time to compare to morning vitals. Pulse ox checked and was in mid 90s. Heart rate rechecked from morning reading by FRUIT TRIMMER staff, and was found to be 55 as opposed to 126. 55 within baseline for client. Client had active bowel sounds. Last BM noted 09/14/21. Client is incontinent of bowel and bladder and was toileted during this shift. Client took all medications and tolerated them well. Client is currently sitting in gerichair sleeping at the time of this note. No further concerns.
--- NOTE | 2021-09-17 18:19 | NUR ---
Primary care done by Lalitha Copeland LPN. Sleeping in chair most of AM without s/o distress. Assessment done by this RN. Alert when awake but did not answer any questions. When asked his name he smirked and then smiled. Calm and cooperative with exam, no speech or behavior suggestive of SI/HI. Breath sounds clear but diminished. Color pink with brisk capillary refill and palpable peripheral pulses. +2 nonpitting edema in ankles. Brief dry. Active bowel sounds over soft, rounded abdomen. Able to stand with alot of support. Currently sleeping in day room with peers without s/o distress.
[2021-09-17 19:23] VITALS: BP 115/65
--- NOTE | 2021-09-18 04:35 | NUR ---
Assumed care of pt at 1900. Pt slightly agitated et uncooperative for most of shift. Refused HS meds several times when attempted to administer crushed in pudding et then mixed into nectar thick liquid consistency. Ambulates the halls with assistance of perry-chair or two staff assisting to ambulate on foot. Alert and oriented to name only. VSWNL. Health assessmnt with no abnormalities noted at present time. Incontinent. Unable to assess SI/HI due to cognitive deficit but does not demonstrate any symptoms of acute emotional distress at present time. Pt does grab at the air which could signify visual hallucinations. Currently resting in perry-chair in dayroom with eyes closed. Will continue to monitor per unit protocol.
[2021-09-18 09:15] VITALS: BP 144/76
--- NOTE | 2021-09-18 17:49 | NUR ---
Assumed pt care from overnight shift this am. Client was in gerichair in activity area resting. Client presented as restless and confused at this time. Client was oriented 1x, and would mumble under his breath when asked questions. Client could not verbalize any depression or anxiety at this time. PRN tylenol given to client due to noted restlessness as client has tendency to became restless when in pain and pain was quantified via nonverbal assessment. This provided complete pain relief as client was not noted to grimace further. Client could not voice hallucinations, but would talk to self and air at this time. Client having notably less stimuli than on initial admission, but still will talk to inanimate objects as well. Client lung sounds were diminished but clear. Client bowel sounds present. Last noted BM several days ago, though no evidence of constipation present. Abdomen soft and rounded. No further concerns at this time.
[2021-09-18 19:10] VITALS: BP 110/72
--- NOTE | 2021-09-19 03:26 | NUR ---
Assumed care of pt at 1900. Pt calm and cooperative this shift. Took medications dissolved in nectar thick apple juice without difficulty. Ambulates with assistance of perry-chair this shift. Was walked from dayroom to bathroom accompanied by two staff members with unsteady gait et then ambulated back to chair afterwards. VSWNL. Health assessment with no abnormalities noted at present time. Unable to assess SI/HI due to cognitive deficit but does not demonstrate any symptoms of acute emotioal distress at present time. Observed grabbing unseen objects out of air which would imply visual hallucinations but no sign of audio hallucinations noted at present time. Currently resting in perry-chair in dayroom with eyes open. Will continue to monitor per unit protocol.
[2021-09-19 09:48] VITALS: BP 113/65
--- NOTE | 2021-09-19 13:28 | NUR ---
Assumed pt's care this am shift. Pt able to mumble his name. Confused. Pt in the dayroom. Meds given crushed. No s/sx of acute distress noted. Pt remains calm. Incontinence change this shift. Pt did show resistance with care. Fall precaution in place. Will continue to monitor.
[2021-09-19 19:13] VITALS: BP 109/70
--- NOTE | 2021-09-20 00:38 | NUR ---
PATIENT HAS BEEN RESTING IN BRIDGET CHAIR ON CHAIR ALARM AT A TABLE IN THE DINING ROOM THIS EVENING. HE HAS BEEN SLEEPING OFF AND ON. PATIENT HAS BEEN CALM AND COOPERATIVE. NO BEHAVIORS. HE IS A/0X1. HE TOOK HIM MEDS CRUSHED IN PUDDING AND DRANK HONEY THICKENED WATER. HE HAS 2+EDEMA IN BILATERAL FEET AND ANKLES. LUNGS DIMINISHED. PATIENT WAS TOILETED AND PLACED IN BED BUT HE WOULD NOT STAY IN BED SO WAS BROUGHT BACK OUT TO BRIDGET CHAIR IN THE DINING ROOM. PATIENT APPEARS TO BE SLEEPING AND RESTING COMFORTABLY IN RECLINER IN DINING ROOM AT THIS TIME. CONTINUING TO MONITOR.
--- NOTE | 2021-09-20 03:50 | NUR ---
PATIENT RESTLESS AND WAS TAKEN TO HIS ROOM FOR INCONTINENCE CHECK AND HE HAD VOIDED. LAID PATIENT IN BED AND HE IS STILL A LITTLE RESTLESS. HONEY THICKENED WATER AND TYLENOL 650MG PO GIVEN TO SEE IF THIS WILL HELP GENERALIZED ACHES AND PAINS AND HELP HIM RELAX ENOUGH TO SLEEP. MED GIVEN CRUSHED IN PUDDING AND WASHED DOWN WITH HONEY THICKENED WATER. BED IN LOW POSITION AND BED ALARM IS ON. CONTINUING TO MONITOR.
[2021-09-20 09:34] VITALS: BP 128/82
--- NOTE | 2021-09-20 13:46 | NUR ---
DID SLEEP UNTIL APPROX 0930 THIS AM-TOOK AM MEDS CRUSHED IN PUDDING WITHOUT RESISTANCE. NOTED TO HAVE FACIAL GRIMACING AND FREQUENT POSITION CHANGES IF IN PAIN-UNABLE TO STATE WHERE PAIN IS AT BUT NODS HEAD YES WHEN ASKED IF HAVING PAIN. MD NOTIFIED AND NORCO5/325 ADMINISERED AT 1100 PER ORDER-DOES APPEAR LESS RESTLESS APPROX 20 MIN AFTER DOSE ADMINISTRATION-ATE 100 PERCENT OF LUNCH WITH STSFF FEEDING-REQUIRES TOTAL ASSIST WITH ALL CARES-2 STAFF FOR INCONTINENT CARE AND IS RESISTIVE AT TIMES WITH REMOVING SOILED BRIEF. NON-VERBAL SO FAR THIS SHIFT-WILL OCCASSIONALLY MOAN. REMAINS HIGH FALLS RISKD/T CONFUSION,ATAXIA AND OCCASSIONAL ATTEMPTS TO STAND ON OWN
--- NOTE | 2021-09-20 17:58 | NUR ---
ERICKSON and Dr. Nelson were able to speak with the Pt's DPOA, Rodger, concerning placement and discharge. An update was provided on the Pt and hospice discussed. Rodger is in agreement to hospice when Pt is placed. Rodger stated he would be out of town this week. Rodger informed that [facility] would be visiting placements. Rodger stated that [facility] was more responsive. Rodger provided Ricci's phone number [phone]. Rodger was informed that Pt is ready to discharge and the family would need to be diligent on finding placement. Rodger understood and had no further questions or comments. ERICKSON will follow up with [facility] and [facility]
[2021-09-20 19:30] VITALS: BP 111/63
[2021-09-20 19:40] VITALS: BP 111/63
[2021-09-20 20:11] VITALS: BP 111/63
--- NOTE | 2021-09-20 23:15 | NUR ---
Assumed care on 09/20/21 @ 1900, seated in perry chair and cooperative with assessment. HRRR, lung sounds diminished, abd n x 4Q. Drinking honey thick beverage and taking meds crushed in pudding. Tylenol 650mg provided for general pain and discomfort. On reassessment, still restless and agitated, olanzapine 5mg provided for anxiety. Keeping patient in the day room in a recliner as he does not appear to be sleepy. High fall risk procedures in effect, chair alarm in the perry chair.
[2021-09-21 11:54] VITALS: BP 128/74
--- NOTE | 2021-09-21 18:01 | NUR ---
Theo was alert and oriented to self only this shift. He presented as drowsy this morning but ate breakfast and walked to his room to be cleaned up and changed. Throughout the morning pt was shadow boxing and grasping at things that were not there, and appeared to be experiencing VH. He was resistant to cares and required three staff members to clean him up. After being cleaned up pt continued to walk the unit with LICENSED AND CERTIFIED MIDWIFE and placed himself in bed. Pt fell asleep and LICENSED AND CERTIFIED MIDWIFE and RN kept a close eye on pt with bed alarm on low setting. Pt was unable to be woken up to safely take his 1100 hydrocodone, therefore it was not given. Speech met with pt and pt was changed to a pureed diet and continue honey thickened liquids. Pt became restless this afternoon and LICENSED AND CERTIFIED MIDWIFE and RN tried to clean pt up and transfer to perry-chair but he was resistant and non-compliant. He was shadow boxing, cursing at times, and tried swinging at staff. Security was calleed and assited with standing pt to get pt dressed and transferred to chair. At dinner pt was spitting out his food and trying to play with it whle feeder was present. This RN attempted to give pt his scheduled hydrocodone and PRN PO zyprexa for agitation, crushed in applesauce, but pt spit it out repeatedly, despite multiple attempts. Dr. Stacy is aware of these behaviors and advised HS RN to call around 1900 regarding behaviors. Will continue to monitor.
[2021-09-21 19:21] VITALS: BP 109/52
[2021-09-21 19:35] VITALS: BP 109/52
--- NOTE | 2021-09-21 19:38 | NUR ---
Assumed care on 09/21/21 @ 1900, seated in a perry chair, high fall risk protocol in place. Eyes closed, respirations even and unlabored. HRRR, Lungs CTA, snoring on expiration, ABD N x 4Q. Honey thick liquids one spoonful at a time, puree food. Last bm noted as 09/20.
[2021-09-22 08:49] VITALS: BP 141/67
[2021-09-22 09:00] VITALS: BP 141/67
--- NOTE | 2021-09-22 11:27 | NUR ---
Assumed care this morning from overnight shift. Client was in gerichair in the activity area at this time. Client presented restless and agitated, and was spitting out food when staff tried to feed him. Client did not want to swallow drinks at this time either and spit those out as well. Client's mouth was hydrated and cleaned by oral swabs at this time, however, client tried to bite staff and did bite the oral swab, so only brief cleaning could be done. During assessment, client presented disoriented x3, though he would reply to his name. Medications were crushed in apple sauce, however, client only took some medications, and not all at this time despite prompting. Staff helped client swallow, encouraging swallowing and thickened fluids at this time. Client was able to eat medications in 2 bites of apple sauce and 2oz fluid. Could not assess depression and anxiety at this time, though restlessness noted. Client was punching at air, and grabbing staff by the hand when staff attempted to help feed him. Client would mumble under his breath, but could not make out what was said. Client lung sounds were diminished. Bowel sounds present. Last BM 09/20. Client was initially taken to toilet at 0840 as client needed bed weight done as well. Client was dry at this time and did not want to use toilet. Weight 163 and 8oz at this time. Shortly thereafter, at 1040, client presented with wet brief and [facility] Client pushed away staff when helped was offered, though staff were able to help him to room. Client became extremely agitated, and started to grab staff by the hands, wrists, and arms at this time. Client would not leave door way and started to swing at staff. Security was called so that client could be changed from soiled garments. Order for manual hold from Dr. Stacy. Client was held by arms for several minutes, as staff got client out of dirty pants and briefs. Client attempted to continue to hit staff at this time and tried to claw staff. Client was then placed in gerichair, after clothing changed, and taken to activity area. Manual hold last approx 3 minutes. No injuries to client. During hold, client continued to mumble, and state "I'll get you-I'll kill you" to staff, and mumble "don't-fuck" and other words staff could not make out. Once given ativan prn ordered, and in gerichair, client calmed significantly. Hydrocodone also given for pain at this time. Client is currently sitting in activity area resting in gerichair. No further concerns at this time.
--- NOTE | 2021-09-22 11:37 | NUR ---
Hospice House referral faxed to: hospice and Palliative [facility]
--- NOTE | 2021-09-22 11:45 | NUR ---
ERICKSON and Dr. Nelson spoke to Rodger by phone concerning hospice house for the Pt. ERICKSON explained the process of intake with the hospice houses. ERICKSON informed if accepted to a hospice house Pt would discharge today or tommorrow. Rodger is in agreement with the plan. ERICKSON later recieved a call from Oj asking that the Pt be placed in [facility]. ERICKSON explained to Oj there are only 3 hospice houses and none are in [facility]. ERICKSON provided the names and locations of the hospice houses in this area. ERICKSON informed that if Pt is accepted into a hospice house, the family will be informed prior to Pt discharging. Oj wanted information on the vistation at the hospice house. Erickson informed there is vistation however ERICKSON could not give him specifics due to Pt not being accepted at this time. Oj had no further questions or concerns.
--- NOTE | 2021-09-22 13:46 | NUR ---
RT Progress Note- Theo has been present in the milieu consistently as he was in previous note. He has not improved in level of participation and continues to respond extremely limited to verbal interaction.
[2021-09-22 19:43] VITALS: BP 124/58
--- NOTE | 2021-09-22 22:42 | NUR ---
At onset of date night caregiver pt was witting in day chair sleeping. Pt's eyes were closed, but pt was sligtly restless and was pushing himself and sliding down in the chair. Pt did not eat evening snack. Pt would not eat or drink. Pt would not take his medications mixed in applesauce. Pt was non compliant with medication due to lack of eating. Pt was cooperative with vital signs. Pt was incontinent and was not combative when being changed and placed into bed. Pt was slightly restless when lying in bed, but did calm down and sleep. Pt was nonverbal this shift. Did not voice any needs or concerns. Fall precautions are in place. Will continue to monitor.
[2021-09-23 09:12] VITALS: BP 152/76
[2021-09-23 09:30] VITALS: BP 152/76
--- NOTE | 2021-09-23 12:42 | NUR ---
Assumed pt care this am from overnight shift. Client was in bed resting, and had been since last night. Per report client refused medication last night but continued to sleep in bed without disturbance. Pt was left in bed this morning after position change as pt has had several restless nights in a row prior to this. Morning medications were held as pt was sleeping. As pt was in bed, nursing was able to assess lung and bowel sounds. Lung sounds slightly crackling and bowel sounds present. Recheck of O2 was 98% as opposed to initial 90% that was reported. Pulse was 64 at rest. Could not assess depression/anxiety/si/hi/ or hallucinations at this time. Q12 minute rounds were done on pt. At 1120, pt awoke. Pt noted to have urinated on himself. Pt was resistant to cares at this time, and refused to let staff change his brief. This staff and neurology technician staff were able to put new brief on pt, but when putting on pants and transferring to [facility], pt became even more hostile, stating "fuck you" at staff, and hitting staff with elbow several times and grabbing staff with his hands. Pt was not redirectable for several minutes, but after using communication and distraction, pt was able to be placed in [facility]. During this time, pt continued to try to hit staff, having hands balled up and swinging. Pt was taken to activity area for closer monitoring, and prn of Geodon IM 15mg was ordered as pt was aggressive and hostile at this time. Pt took IM without any resistance at this time, as pt was watching tv and talking to himself while having hands balled up. Pt continued to watch tv and further talk to himself after shot. Currently, pt is sitting in activity area watching tv and speaking to self. Asked provider for med change, and depakote and zyprexa were dc at this time. Awaiting further orders. Hydrocone was given in small amount of ensure pudding. Client is resistant to eating at this time, and eats small spoonfuls on occasion. Client did drink about 2oz water at this time. No further concerns as of time of this note.
--- NOTE | 2021-09-23 15:17 | NUR ---
ERICKSON and Dr. Nelson called Rodger concerning the hospice house denials. the options were given to Rodger. Rodger had to end the phone call due to being in a working meeting and not able to talk. Rodger stated he would contact ERICKSON back today concerning the matter. ERICKSON and Dr. Nelson also called [facility] concerning the matter and left a message. [facility] later called back ERICKSON explained the options. [facility] would like to continue to pursue placement at this time.
--- NOTE | 2021-09-23 15:19 | NUR ---
ERICKSON faxed referrals to the following: [facility]
[2021-09-23 19:34] VITALS: BP 100/74
--- NOTE | 2021-09-23 22:58 | NUR ---
At onset of machinist 2nd shift pt was sitting in perry chair in day room. Pt was sleeping but arousable. Pt does not open his eyes fully. Pt was alert and only oriented to himself. Pt did speak this shift, but speech is garbled and unintelligible. Pt ate his dissovable zyprexa, as well as one pudding cup, one yogurt cup and one cup of juice. Pt was then changed and put to bed. It was difficult to obtain an accurate O2 reading on pt and RN had to use the ear pulse oximeter to obtain O2 of 93%. Pt was responding to internal stimuli while eating; punching the air and acting like he was eating from his hands, but there was nothing in his hands. Fall precautions are in place. Will continue to monitor.
[2021-09-24 09:31] VITALS: BP 139/75
--- NOTE | 2021-09-24 11:59 | NUR ---
WAS RESISITIVE WITH INCONTINENT CARE THIS AM-GRABBING ONTO HANDS OF NURSING STAFF AND SQUEEZING TIGHTLY-ALSO ATTEMPTING TO STRIKE OUT AT NURSING STAFF WITH BRIEF CHANGE. INITIALLY SPIT OUT AM MEDICATIONS BUT DID TAKE CRUSHED WHEN MIXED WITH ICE CREAM. SOMULENT AT TIMES THIS AM-SPEECH SLURRED AND DIFFICULT TO UNDERSTAND. TOTAL ASSIST WITH ALL CARES-REQUIRES 3 STAFF FOR INCONTINENT CARE. ATE APPROX 40 PERCENT WHEN FED BY STAFF.
--- NOTE | 2021-09-24 16:23 | NUR ---
RESTING QUIETLY IN BED GUZMAN APPROX [id number] ICE CREAM AND PUDDING AT TIMES AND MEDS ARE CRUSHED AND PUT IN ICE CREAM-WILL TAKE SMALL SIPS OF THICKENED LIQUIDS BEFORE HE BEGINS TO SPIT THEM OUT.SCHEDULED NORCO AT 1100 AND 1700 APPEARS TO DECREASE RESTLESSNESS,FACIAL GRIMACING AND MOANING -PT IS UNABLE TO VERBALIZE PAIN SCALE. REMAINS HIGH FALLS RISK-ASPIRATION RISK AND HIGH SKN BREAKDOWN RISK-REPOSITIONED AND TOILETED Q 2-3 HRS THROUGHOUT SHIFT. NO REDNESS OR OPEN AREAS NOTED TO SKIN-WILL CONTINUE TO MONITOR
[2021-09-24 19:54] VITALS: BP 100/79
--- NOTE | 2021-09-25 07:08 | NUR ---
Pt confused. Resistance to incont change. Pt was tucked in bed, stayed in bed for a little while then started getting out of bed. Pt out to day rm on a gerichair. Pt remained in recliner through shift. SLept off and on. Pt became agitated around 0100, trying to get of recliner. Unable to follow commands and redirections. Nursing gave pt prn meds. Med effective. Pt took meds crushed in nectar thick applejuice. Nursing to continue to monitor.
[2021-09-25 09:02] VITALS: BP 151/86
--- NOTE | 2021-09-25 18:35 | NUR ---
Taking off shirt and pants this AM, incontinent of yellow urine and yellow brown stool. Once cleaned up he settled down and took med whole with ice cream without difficulty. Became restless mid AM and circus artist stated that he said his back was hurting, they placed ice pack and tylenol given. Placed in bed for comfort, sleeping soundly upon reassessment. 1100 oxycodone not given d/t continued sleep and no s/o distress. Able to state name, very little other verbalizations. No speech/behavior suggestive of SI/HI until late in afternoon when he became agressive with attempts to get him out of bed for dinner. Began swinging fists and attempting to bite. Did calm down and placed in recliner and brought out to recliner after being cleaned up. Took olanzapine and hydocodone with ice cream without difficulty. Breath sounds clear. Reg HR auscultated. Color pale pink with brisk capillary refill and palpable peripheral pulses. Soft brown BMs X 2 today and incontinent of large amts yellow urine. Active bowel sounds over soft, rounded abdomen. Bears wt when out of chair but does not attempt to take steps. Currently sleeping in chair without s/o distress.
--- NOTE | 2021-09-26 04:34 | NUR ---
Assumed pt's care this pm shift. Pt was in the dayroom. Unable to answer questions. Had his med whole in pudding. Resistance to care. Pt currently resting comfortably in his rm. No s/sx of acute pysch distress noted.
[2021-09-26 09:04] VITALS: BP 140/51
--- NOTE | 2021-09-26 14:41 | NUR ---
RESTLESS WITH BRIEF EPISODES OF AGITATION-ZYPREXA 2.5MG GIVEN PO PRN MID AM FOR AGITATION WITH POOR RESULTS-LITTLE CHANGE IN BEHAVIOR-TOILETED Q 2 HOURS-SOME PHYSICAL AGITATION WITH INCONTINENT CARE-CONTINUES RESTLESS-DIFFICULT TO REDIRECT AT TIMES-AMBULATED IN HALLWAYS X2-REQUIRES ASSIST 2-3 TO AMBULATE VERY ATAXIC
[2021-09-26 19:35] VITALS: BP 103/65
[2021-09-26 20:26] VITALS: BP 103/65
--- NOTE | 2021-09-27 05:02 | NUR ---
PATIENT CARE WAS RESUMED AT 1900. HE WAS SITTING AT THE TABLE IN THE DININNG AREA. HE TOOK HIS MEDS IN A PUDDING AND BS ARE ACTIVE X4 QUAD. LUNGS ARE CLEAR, ABD IS SOFT, FLAT AND NONE TENDER.NEAL PAINS/SI/AVH/HI. YELLOW TOP AND SOCKS ON.HE IS INCONTINIET OF BOWEL AND BLADDER AND MARVEL CARE WAS PROVIDED.. HES WAS TAKEN TO BED BUT DID NOT STAY AND WAS ACK TO CHAIR IN THE DININNG AREA. CHAIR ALARM IN PLACE CONTINUE CARE
--- NOTE | 2021-09-27 12:58 | NUR ---
NOTED INCREASE IN VISUAL HALLUCINATIONS THROUGHOUT SHIFT SO FAR-MAKING THE SIGN OF THE CROSS-PICKING AT UNSEEN OBJECTS IN AIR CONSTANTLY. TALKING TO UNSEEN OTHERS-SPEECH INCOHERENT -FRAGMENTED. AGITATED AND RESTLESS AT TIMES ATTEMPTING TO GET UP ON OWN.
--- NOTE | 2021-09-27 15:08 | NUR ---
COMBATIVE WITH NURSING LEGJC-MAGICLWW-[id number] SAME PHRASE OVER AND OVER"ITS IN THE PAST" ITCHING SKIN CONTINOUSLY-DR CANDELARIA CONTACTED AND ORDERS RECEIVED TO DC OPIATE PAIN PATCH-GEODON 15 MG GIVEN IM X1 AT APPROX 1500-DOES APPEAR CALMER WITHIN 10-15 MIN OF INJECTION. STAFF AT BEDSIDE FOR CONSTANT OBSERVATION AT THIS TIME. "
[2021-09-27 19:20] VITALS: BP 98/65
[2021-09-27 20:43] VITALS: BP 98/65
--- NOTE | 2021-09-28 05:26 | NUR ---
PATIENT CARE WAS RESUMED AT 1900. HE WAS IN THE DININING AREA SITTING ON THE RECLINER AT THE TABLE. HE IS AMBULATES WITH BRIDGET CHAIR AND DENIES PAINS/SI/AVH/HI HE IS INCONTININET OF BOWEL AND BLADDER. LUNGSARE CLEAR BS ACTIVE X4 QUADS. HE TOOK HIS MEDS CRUSHED AND ON THICKENED LIQUID. HE WAS REPOSTIONED FOR COMFORT. HE IS INCONTINIET OF BOWEL AND BLADDER AND MARVEL CARE WAS PROVIDED AND HE WAS MADE COMFORABLE IN BED.ALARMED, LOW AMD LOCKED.YELLOW TOP AND SOCKS ARE ONGOING.Q 12MINUTES CHECKS ONGOING.
[2021-09-28 09:43] VITALS: BP 101/74
--- NOTE | 2021-09-28 11:52 | NUR ---
Alert and orientated to name only. Smiling and happy with some coherent speech, at other times confused speech and reaching for objects. Tylenol given for pain after he walked around unit and then stated he hurt. No speech or behavior suggestive of SI/HI. Breath sounds clear and diminished, no s/o resp distress. Reg HR auscultated. Color pink with brisk capillary refill and palpable peripheral pulses. Active bowel sounds over soft, rounded abdomen. Ambulates with slightly unsteady gait, needs assistance. One time dose of olanzapine given mid AM.
--- NOTE | 2021-09-28 18:23 | NUR ---
Pt has been accepted at [facility] and [facility]. ERICKSON did informed Rodger. Rodger has choosen [facility]. ERICKSON informed Rodger that he would need to work quickly to get the facility the paperwork needed and payment so that Pt can be discharged directly to the facility the week. Rodger expressed understanding of the matter and assured he would work diligently to get everything done timely. ERICKSON will continue to follow.
[2021-09-28 19:50] VITALS: BP 100/55
[2021-09-28 21:08] VITALS: BP 100/55
--- NOTE | 2021-09-29 05:14 | NUR ---
PATIENT CARE WAS RESUMED AT 1900. HE WAS SITTING AT THE TABLE ON A BRIDGET-CHAIR. HE IS CALM AND CONFUSED. LUNGS ARE CLEAR BS ACTIVE X4 QUADS. HE IS INCONTINENT OF BOWEL AND BLADDER. ABD IS SOFT MODERATE SIZED AND NONE TENDER. HE DENIES PAINS/SI/AVH/HI. HE TOOK HIS MEDS WITH PUDDING. MAX ASSIST WITH MARVEL CARE. PRN ATIVAN O.5MG GIVEN FOR AGGITATION WITH SOME EFFECT. CONTINUE CARE
[2021-09-29 09:08] VITALS: BP 107/61
--- NOTE | 2021-09-29 13:53 | NUR ---
PATIENT WAS UP, AND OUT ON THE UNIT, SITTING IN GERICHAIR WHEN CARE ASSUMED. MORNING MEDICATION GIVEN CRUSHED IN PUDDING, WELL TOLERATED. APPETITE POOR, PATIENT TOOK ONLY A FEW BITE OF BREAKFAST/LUNCH. INCONTINENT CARE PROVIDED PER STAFF. PATIENT HAS BEEN CALM, AND COOPERATIVE WT CARE, BUT AT ABOUT 1230HRS, HE BECAME VERY RESTLESS, ANXOIUS, AND FACE GRIMACING NOTED. PRN OLANZEPAN 5MG, AND MORPHINE SULFATE 10MG/ML GIVEN AT 1248HRS/1252HRS RESPECTIVELY, WITH POSITIVE EFFECT. NO AGITATION OR AGGRESSIVE BEHAVIOR NOTED, PATIENT CURRENTLY TAKING A NAP. NO SIGN OF ACUTE DISTRESS NOTED, WILL MONITOR FOR SAFETY.
--- NOTE | 2021-09-29 15:17 | NUR ---
ERICKSON spoke with Viktoria at [facility]. Viktoria informed that the DPOA has not been responsive to calls concerning paperwork and payment. ERICKSON called Rodger concerning the matter and left a message for a return call. ERICKSON also called Lenny for assistance in the matter. Lenny stated she would reach out to Rodger. ERICKSON later recieved a VM from Rodger stating he has spoken to Viktoria and made arragements for Viktoria to get paperwork completed and payment. ERICKSON was able to set discharge with Viktoria for Pt to discharge to [facility] 09/30/2021 @ 1500 via [employer] [facility] will provide services to the Pt at [facility].
[2021-09-29 19:17] VITALS: BP 103/61
[2021-09-29 19:30] VITALS: BP 103/61
[2021-09-30] VITALS (10 sets, daily range): BP systolic 102–142; BP diastolic 56–72
--- NOTE | 2021-09-30 01:58 | NUR ---
PATIENT CARE WAS RESUMED AT 1900. HE IS A MAX ASSIST WITH CARE AND HE WAS ASSITED TO BED. MEDS WERE GIVEN WITH PUDDING. HE IS IN BED SLEEPING AND HE IS INCONTINNITE OF BOWEL AND BLADDER. LUNGS ARE CLEAR BUT DIMINISHED AT THE BASES. HE IS A MAX ASSIT WITH CARE. MARVEL CARE WAS PROVIDED. BED IS LOW, LOCKED AN ALARMED. NO SIGN OF SI/AVH AND HI NOTED AT THIS TIME.
[2021-09-30] MEDS ORDERED: TYLENOL325 MG PO (12:38)
[2021-09-30] MEDS ORDERED: OLANZAPINE ODT5 MG SUBLING (12:40)
--- NOTE | 2021-09-30 14:31 | NUR ---
@1041 ERICKSON recieved and email from Viktoria at [facility] requesting a phone call. ERICKSON did call Viktoria. Viktoria expressed concern with the family and the placement. Viktoria informed that Codey Morataya, Pt's , was stating she was going to put a hold on the check. Estela stated she spoke with Rodger concerning the matter. Rodger was suppose to call back but had not at this time. Viktoria asked for assistance conctacting the family. @1047 ERICKSON contacted Rodger concerning the matter. ERICKSON left a VM for a call back. @1048 ERICKSON contacted Lenny concerning the matter. Lenny was unaware of any issues. Lenny stated she was aware of the discharge. ERICKSON explained transportation. Lenny stated she was only aware that the Pt needed clothes, no other issues. Darlin stated she would call Viktoria concerning the matter. @1128 ERICKSON recieved an email from Viktoria asking to call her cele. ERICKSON called Viktoria and was informed that Codey was at the facility. Viktoria put ERICKSON on speaker phone. Viktoria, Codey and Pat ( Codey's sister) was on the phone call. Codey stated that she did not like [facility] because it was "depressing". Codey stated she has been calling ERICKSON but ERICKSON did not return her calls. ERICKSON explained that there have been no missed calls or voice mails from Codey. However ERICKSON has spoken with her in the past and she stated that we needed to contact Rodger due to having brain cancer and recent brain surgery. ERICKSON also explained that since that time the ERICKSON and Dr. Nelson have spoken to Rodger serveral times and worked with him on discharge planning. ERICKSON informed that Rodger was in agreement to the placement at [facility] and this is why discharge was arranged. ERICKSON informed that the Pt would need to discharge home today with hospice and Pt would need 24/7 care an supervision. Theresa stated, " the hospital can't put him on the street". ERICKSON clarified again that the Pt will be discharged home. ERICKSON explained home health options and hospice. Viktoria stated they would not longer be able to take Pt as family was no longer in agreement. Viktoria gave the check and paperwork back to Codey. Phone call was ended. ERICKSON then called Rodger concerning the matter. Rodger express frustrations over the situation and Codey's decision. Rodger stated " I don't know what to do at this point". ERICKSON explained that the Pt would be discharged home. ERICKSON went over options for private duty nursing in the home. Also ERICKSON explained hospice. ERICKSON informed there were two other facilities who may be willing to take the Pt. Rodger asked that I email him information on the facilities. Rodger stated he would take Codey around this weekend to look at facilities. ERICKSON did email the requested information to [email or web address]. ERICKSON the called Lenny concerning the matter and informed her on the change. Lenny stated she had spoke with Codey. Lenny express her frustration about the matter. ERICKSON explained the Pt would be discharged to the home. ERICKSON stated that Codey wanted a referral sent to [facility]. ERICKSON stated this could happen however Pt would still need to discharge. Lenny expressed frustration over the situation. ERICKSON provided emotional support ERICKSON did fax referral to [facility]
--- NOTE | 2021-09-30 15:39 | NUR ---
Patient care resummed; patient located in the dayroom lying in GeriChair asleep. Patient disoriented*4; Lethargic; unable to communicate with me this morning; was responsive to repeated verbal stimuli; V/S were stable to patient baseline this morning, on RoomAir; Patient has not eaten any meals today, or snacks; Morning medications were helded per POC; 0.5mg oral morphine was given @0910 as patient was visualized grimicing, and was very tense; Patient has been given oral mouth swabs every 30minutes for dry mouth and chap stick for oral dryness by staff; CAR PORTER visualized a change in patients condition about 1330; Patient noted to be unresponsive to all stimuili; breathing presents labored; and patient notes having 8/10 second gaps betweens breathes; skin is cool and clammy; eyes appeared glossy, half opened and teary; V/S @1345 117/62 83%O2 HR109 74MAP 98.6T I paged @ 1400 as patient was noted to be discharged at 1500; Nurse Styles and came onto unit and assessed patient; V/S @1420 115/60 HR108 O279% R40 Patient then recieved a onetime dose of 20mg Oral Morphine at 1420 per Nurse Sanches assessment; Patient moved into own room; being monitiored closly; family updated; patient to be transferred to room# 211.
--- NOTE | 2021-10-02 13:30 | D ---
[facility] [place] [address] DISCHARGE SUMMARY Name: DAVY LINTON Room #: 527A-A DIS IN M.R.#: [id number] Admission: 09/01/21 Attend Phys: Will Stacy DO Discharge: 09/30/21 Date of : 37 Report #: [id number] THIS REPORT FOR: cc: Gilbert Zee MD, Mark C. MD Kerstein,Will Shine DO ~ DATE OF SERVICE: 09/30/2021 INPATIENT PSYCHIATRIC DISCHARGE SUMMARY ATTENDING PSYCHIATRIST: Will Stacy DO [employer] OFFICER: Will Knutson MD DISCHARGE DIAGNOSES: Major neurocognitive disorder, likely due to Alzheimer's disease, end-stage. The patient now terminal. MEDICAL COMORBIDITIES: For this patient include hypertension, medications on hold; hyperlipidemia. The patient is being discharged to a [facility] bed on 2N at [facility] with [facility] assisting. Dr. Knutson will be his attending down there. As such, there are no discharge medications. The patient is strictly bedrest, n.p.o. except for palliative care medications that will be ordered. LABORATORY DATA: Most recent laboratories are as follows: Hematology from 09/11/2021, H and H 10.8 and 32.7, white count 4.6, platelet count 123. Chemistries from 09/11/2021, sodium 143, potassium 3.6, chloride 111, bicarbonate 32, anion gap 0, BUN 13, creatinine 1.0, estimated GFR 86, glucose 99, calcium 9.0, magnesium 1.9, total bilirubin 0.5, AST 16, ALT 21, alkaline phosphatase 45. Ammonia less than 10, total protein 6.7, albumin 2.7. Urinalysis from 09/05/2021 showed 1+ ketones, otherwise, within normal limits. The patient was on Depakote for a period. Part of it was discontinued. He did achieve the therapeutic blood level on 09/13/2021 to 75. SARS-CoV-2 PCR was negative on 09/16/2021, 09/19/2021, 09/23/2021 and 09/26/2021. REASON FOR ADMISSION: Back on 09/01/2021 or so as follows, an 85-year-old black male transferred from [facility]. The patient was apparently restless, confused, wandering, exit seeking and agitated. He was treated at [place] for electrolyte disturbance including acute hyperkalemia, prolonged QT interval. The patient had a multiyear history of dementia. Stepson said he was 4.5 on a global deterioration scale at time of admission. So, the patient ____ hospitalization in a grossly impaired state, but was not on placement. 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 HOSPITAL COURSE: The patient was admitted to Geriatric Psychiatry Unit. We used Depakote and olanzapine for majority of the hospitalization. The patient [address] [address] DISCHARGE SUMMARY Name: DAVY LINTON Room #: 527A-A NANCY IN M.R.#: [id number] Admission: 09/01/21 Attend Phys: Will Stacy DO Discharge: 09/30/21 Date of : 37 Report #: [id number] went on to have a lot of breakthrough behaviors where he was resistant with cares. He would punch and things like that. The patient's family was not in coordinated state with regards to plans for the patient. The left it to the stepson who is a second DPOA. The stepson was difficult to get a hold of at times. The patient will go into a fairly nonresponsive state for several days and all of a sudden, he would bounce back and often have some assaultive behaviors, so these issues made it difficult to get a placement done before the [place] . We actually had a placement set on 09/30/2021 to [facility]. The went over and demanded their deposit back, said it was it was submitted without her permission. I agree with my web content & social media manager that we had talked to the much earlier in admission and it was requested that her stepson handle this. Then on the day of discharge, we had an issue where he was going to go home with care of by family on a hospice company and that was declined at the last minute by the family. I made attempts to get him to [facility], but they were unavailable, so then we were able to get the patient placed in a GIP bed here at [facility]. I expect his life expectancy to only be a few days. On the day of discharge, he began agonal breathing, was tachycardic and was satting 78% or so. I did a progress note yesterday at time of discharge, so I refer the reader to that. PROGNOSIS: For this patient is terminal, quite poor, complicated life expectancy. greater than 90 minutes spent on discharge day actvities for this patient <ELECTRONICALLY SIGNED> By: Will Stacy DO 10/02/21 1330 0730 [id number] Will Stacy, DO /nt
== END 2021-09-30 18:00 | disposition hospice, inpatient (51) | DRG 56 ==
LOC: SBH
PROVIDERS: Internal Medicine; Nurse Practitioner; ADMIT Psychiatry & Neurology Psychiatry; ATTEND Psychiatry & Neurology Psychiatry
DX: G30.9 Alzheimer's disease, unspecified (principal); F02.81 Dementia in other diseases classified elsewhere, unspecified severity, with behavioral disturbance; E43 Unspecified severe protein-calorie malnutrition; N17.9 Acute kidney failure, unspecified; F32.9 Major depressive disorder, single episode, unspecified; I49.1 Atrial premature depolarization; I10 Essential (primary) hypertension; D69.6 Thrombocytopenia, unspecified; E78.5 Hyperlipidemia, unspecified; Z79.899 Other long term (current) drug therapy; Z68.21 Body mass index [BMI] 21.0-21.9, adult
CPT/HCPCS: 10880

== ENCOUNTER 2021-08-31 23:02 | Emergency (ER) | payer OTHER ==
[~2021-08-31] VITALS: Ht 172.7 cm; Wt 72.6 kg
[2021-09-01 04:55] VITALS: BP 191/98
--- NOTE | 2021-09-01 08:51 | EKG ---
[place] [address] [facility] [place] [address] ELECTROCARDIOGRAM REPORT Name: DAVY LINTON Room #: DEP MAURICIO Shannon#: [id number] Admission: 08/31/21 Attend Phys: Discharge: 09/01/21 Date of : 37 Report #: [id number] [facility] ED Test Date: 2021-08-31 Test Time: 23:23:28 Pat Name: DAVY LINTON Department: Room: Gender: Care Tech: cindi : 1935 Requested By: Simon Bianchi Order Number: [id number] MD: Gonzalo Box Measurements Intervals [place] Rate: 59 P: 55 MI: 168 QRS: 53 QRSD: 90 T: 80 QT: 497 QTc: 493 Interpretive Statements Sinus rhythm Atrial premature complex Borderline prolonged QT interval Baseline wander in lead(s) V3 No previous ECG available for comparison Electronically Signed On 09-01-2021 8:51:41 DEVELOPMENTAL SPECIALIST by Gonzalo Box [email or web address] <ELECTRONICALLY SIGNED> By: Gonzalo Box MD, [facility] 09/01/21 0851 [id number] Gonzalo Box MD, FACC /EPI
== END 2021-09-01 04:55 ==
LOC: ER 23:02
PROVIDERS: Emergency Medicine
DX: G30.9 Alzheimer's disease, unspecified (principal); Z20.822 Contact with and (suspected) exposure to COVID-19; F02.81 Dementia in other diseases classified elsewhere, unspecified severity, with behavioral disturbance; F05 Delirium due to known physiological condition

== ENCOUNTER 2021-09-30 18:31 | Inpatient (IN) | payer OTHER ==
[~2021-09-30 18:31] MED LIST: OLANZAPINE ODT5 MG SUBLING; TYLENOL325 MG PO
[2021-09-30 18:34] VITALS: BP 91/53
--- NOTE | 2021-09-30 20:33 | NUR ---
PT RESTING.TACHYCARDIA. WET BRIEF CHANGED. UNRESPONSIVE.SKIN WARM.02/2L FOR COMFORT.ON COMFORT CARE FROM [facility].
[2021-10-01] VITALS (7 sets, daily range): BP systolic 77–89; BP diastolic 46–52
[2021-10-02 02:00] VITALS: BP 89/52
--- NOTE | 2021-10-02 02:19 | NUR ---
continues on iv morphine gtt. resp rate controlled. he is resting quietly. assist with turns and incontince.
--- NOTE | 2021-10-02 04:37 | NUR ---
NURSING NOTE: SHIFT SUMMARY: ASSUMED CARE OF THIS PATIENT AT 0315 TODAY FROM CARRIE RN. PT ON COMFORT CARE MEASURES WITH A MORPHINE GTT RUNNING AT 2MG/HRR. ALL VS AND ASSESSMENTS CHARTED. NO URINARY OUTPUT OR BM NOTED AT THIS TIME. RESPONSIVE TO PAINFUL STIMULI. NO VERBAL RESPONSE NOTED. WILL CONTINUE TO MONITOR.
--- NOTE | 2021-10-02 06:32 | NUR ---
NURSING NOTE: PT LYING IN BED AT THIS TIME WITH EYES OPEN, BODY RIGID, AND ARMS IN THE AIR IF GRABBING SOMETHING. MAKING GROANING SOUNDS. ATIVAN 2MG IVP GIVEN ORDERED. WILL CONTINUE TO MONITOR.
[2021-10-02 07:23] VITALS: BP 90/54
[2021-10-02 08:00] VITALS: BP 90/54
[2021-10-02 16:16] VITALS: BP 90/54
--- NOTE | 2021-10-02 17:21 | NUR ---
ASSUMED CARE OF PATIENT AT 0700. NO FALLS OR INJURIES THIS SHIFT. VITALS TAKEN ONCE THIS MORNING AND THEN DURING HOSPICE NURSE VISIT, UNABLE TO OBTAIN EDUARDO OR O2 ON PATIENT. MORPHINE TURNED UP TO 4 BUT HOSPICE NURSE STATED TO TURN IT UP TO 20, THAT PATIENT IS ACTIVELY DYING AND SHE CALLED SON TO LET HIM KNOW THAT FAMILY NEEDED TO COME AND SEE HIM TONIGHT IF THEY HAD NOT. I WILL TURN MORPHINE UP TO 10 AT THIS TIME AND LET BODY COVERER KNOW THAT PATIENT CAN GO UP TO 20 ON MORPHINE. TM
[2021-10-02 20:06] VITALS: BP 79/42
--- NOTE | 2021-10-03 05:04 | NUR ---
NURSING NOTE: SHIFT SUMMARY: COMFORT CARE: PT REMAINS UNRESPONSIVE. CURRENTLY RESTING WITH EYES CLOSED, RESP = 8 BPM. NO TELEMETRY. LAST MAP = 57. INCONTINENT OF URINE X2 TIMES/MODERATE AMOUNT. X1 SMALL BM/SMEAR. MORPHINE GTT INFUSING 10MG/HOUR. ALL VS AND ASSESSMENTS CHARTED. NO DISTRESS NOTED AT THIS TIME. WILL CONTINUE TO MONITOR.
--- NOTE | 2021-10-03 08:28 | NUR ---
INCREASED MORPHINE TO 15MG/HR. PATIENT REMAIN UNRESPONSIVE. BREATHING HEAVILY WITH EACH BREATH. WCTM
[2021-10-03 12:00] VITALS: BP 132/69
--- NOTE | 2021-10-03 16:05 | NUR ---
ASSUMED CARE OF PATIENT AT 0700. PATIENT CURRENTLY ON COMFORT CARE, ACTIVELY DYING. PATIENT REMAINS ON MORPHINE GTT, INCREASED TO 15MG/HR THIS MORNING. ONE DOSE OF ATIVAN GIVEN AFTER [facility] VISIT. PATIENT TURNED FOR COMFORT MEASURES AND CHECKED ON FREQUENTLY.
[2021-10-03 20:00] VITALS: BP 53/27
--- NOTE | 2021-10-04 04:04 | NUR ---
NURSING NOTE: SHIFT SUMMARY. COMFORT CARE: PT UNRESPONSIVE ENTIRE SHIFT. NO FAMILY AT BEDSIDE. PT HAS HAD NO INCONTINENT EPISODES OF BOWEL AND BLADDER. RESP = 6 BPM. MORPHINE GTT INFUSING @ 15MG/HR. NO DISTRESS NOTED AT THIS TIME.
--- NOTE | 2021-10-04 04:49 | NUR ---
NURSING NOTE: END OF LIFE: PT IN BED, NON RESPONSIVE, RESTING PEACEFULLY @ TOD OF 0428 TODAY. PACKET COMPLETED. MTN NOTIFIED @ 3260. SON NOTIFIED @ 4916. POST MORTEM CARE IN PROGRESS. CATHY DELGADO NOTIFIED@ 9127 ALONG WITH MAINTENANCE SUPERVISOR. DISCHARGE IN PROGRESS AT THIS TIME.
== END 2021-10-04 04:28 | DRG 189 ==
LOC: 2N 18:31
PROVIDERS: ADMIT Hospitalist; ATTEND Hospitalist
DX: J96.90 Respiratory failure, unspecified, unspecified whether with hypoxia or hypercapnia (principal); E43 Unspecified severe protein-calorie malnutrition; G93.41 Metabolic encephalopathy; F03.90 Unspecified dementia, unspecified severity, without behavioral disturbance, psychotic disturbance, mood disturbance, and anxiety; R62.7 Adult failure to thrive; Z66 Do not resuscitate; I10 Essential (primary) hypertension; E78.5 Hyperlipidemia, unspecified; Z51.5 Encounter for palliative care
CPT/HCPCS: 10797